=== PATIENT | female | born 1980 | race Two or more races ===

== ENCOUNTER 2018-12-16 21:00 | Emergency (ER) | payer BC, OTHER ==
[~2018-12-16] VITALS: Ht 154.9 cm; Wt 63.5 kg
--- NOTE | 2018-12-16 21:15 | NUR ---
patient walk in to ER ,complaining of N/V.AAOX4,MAEX4.no respiratory distress .
[2018-12-16] MEDS ORDERED: ONDANSETRON ODT 4 MG TAB.RAPDIS SL ONE (21:45)
[2018-12-16] MEDS ORDERED: ONDANSETRON ODT 4 MG TAB.RAPDIS ONE (21:48)
[2018-12-16 22:09] LABS: *BILIRUBIN,URIN NEGATIVE (NEGATIVE); *BLOOD, URINE NEGATIVE (NEGATIVE); *COLOR,URINE YELLOW (YELLOW); *KETONES,URINE 1+ (NEGATIVE); *URINE HCG, QUAL NEGATIVE (NEGATIVE); *UROBILINOGEN,URINE 0.2 E.U./dl (NORMAL); LEUKOCYTE ESTERASE ,URINE NEGATIVE (NEGATIVE); NITRITE, URINE NEGATIVE (NEGATIVE); UGLUCOSE NEGATIVE (NEGATIVE)
[2018-12-16 22:13] LABS: *CLARITY,URINE SLIGHTLY HAZY (CLEAR)
[2018-12-16 22:15] LABS: BACTERIA,URINE FEW /HPF (NONE SEEN); MUCUS,URINE MANY /LPF (0-FEW); RBC,URINE 0-3 /HPF (0-3); SQUAMOUS EPITHELIAL CELL,UR MODERATE /HPF (NONE SEEN); WBC,URINE 0-3 /HPF (0-3)
--- NOTE | 2018-12-16 22:44 | NUR ---
Patient discharged to home in stable conditon. Written and verbal after care instructions given. Patient verbalizes understanding of instructions.
== END 2018-12-16 22:47 | disposition home or self-care (01) ==
LOC: ER 21:02
DX: J10.1 Influenza due to other identified influenza virus with other respiratory manifestations (principal); Z88.8 Allergy status to other drugs, medicaments and biological substances
CPT/HCPCS: 36415; 84703; 86403; 87070; 87400; A4663; Q0162